=== PATIENT | male | born 1980 | race Two or more races ===

== ENCOUNTER 2024-10-14 14:03 | Outpatient (REF) | payer MEDICAID, SELFPAY ==
--- NOTE | ~2024-10-14 | US_ITS ---
CLINICAL HISTORY: right testicular pain, non palpable mass US Scrotum with Doppler Comparison: None Findings: Right testicle normal echotexture, 4.4 x 2.2 x 3.0 cm. Left testicle normal echotexture, 3.7 x 2.1 x 3.0 cm. Color Doppler and arterial/venous spectral tracings of both testicles within normal limits. A 4 mm right appendix testis is incidentally noted. This is of no current significance. Normal epididymides. There is a small right-sided hydrocele. There is no left-sided hydrocele. There are no varicoceles. IMPRESSION: Small right-sided hydrocele. This document has been electronically signed by: Cris Bustamante MD on 10/15/2024 15:20:36
--- OUTSIDE RECORDS SUMMARY | 2024-10-14 16:52 | XMS_ITS | Encounter Summary ---
Author Organization [employer] [facility] Address [address] [place] [address] 7 [place] [address] Care Team Providers Care Medical Staff Director Name Role Phone Unavailable Primary Care Provider Unavailabl e Reason for Visit * Reason Onset Date Comments Appointment Request 09/24/2024 Encounter Details Date Type Department Care Team (Late st Contact Info) Description 09/24/2024 Telephone [facility] [address] [place] [address] [phone] Hemalatha Paiz MA Appointment Request Social History Tobacco Use Types Packs/Day Years Used Date Smoking Tobacco: Former Cigarettes S tarted: 1999 Smokeless Tobacco: Never Sex and Gender Information Value Date Recorded Sex Assigned at Male 09/13/2024 10:17 AM EST Legal Sex Male 8:25 AM EST Gender Identity Male 09/12/2024 8:26 AM EST Sexual Orientation Straight 09/13/2024 9: 04 AM EST documented as of this encounter Miscellaneous Notes * Telephone Encounter - Hemalatha Paiz MA - 09/24/2024 2:57 PM EST Tc to pt to r/s appt from 11/13/24 as PCP will be in that afternoon. Appt has been scheduled for 11/13/24 at 2:00 pm, LVM with appt info. documented in this encounter Plan of Treatment Upcoming Encounters Date Type Department Care Team (Late st Contact Info) Description 11/13/2024 2:00 PM EDT Office Visit [facility] [address] [place] [phone] Alize Clarke MD [address] [place] [address] documented as of this encounter Visit Diagnoses Not on filedocumented in this encounter
--- OUTSIDE RECORDS SUMMARY | 2024-10-14 16:53 | XMS_ITS | Clinical Summary ---
Author Organization [employer] [facility] Address [address] [facility] [address] [place] [address] Care Team Providers Care Commutator V Ring Assembler Name Role Phone Unavailable Primary Care Provider Unavailabl e Allergies No known active allergies Medications phenylephrine-s hark liver oil-mineral oil-petrolatum (Preparation H) 0.25-3-14-71.9 % rectal ointment Insert into the rectum if needed in the morning and at bedtime for hemorrhoids for up to 10 days. 30 g 09/23/19 25 Active Problems Problem Noted Date Diagnosed Date Pain in testicle 09/13/2024 Assessment & Plan (09/13/2024 9:55 AM EST): Rule out scrotal lesions versus hernia, no evidence of epididymitis or other lesions. Order scrotal ultrasound and follow-up with PCP Hematochezia 09/13/2024 Assessment & Plan (09/13/2024 9:55 AM EST): Secondary to external hemorrhoids, not prolapsed or bleeding at this time. Use Preparation H rectal cream twice daily or after BMs. Avoid constipation, increase p.o. water intake and follow-up with new PCP, may need colonoscopy Encounters Date Type Department Care Team Description 09/24/2024 Telephone [facility] [address] [place] [phone] Hemalatha Paiz MA Appointment Request 09/13/2024 9:40 AM EST Office Visit [facility] [address] [place], [place] [phone] Alize Clarke MD Hematochezia (Primary Dx); Pain in testicle, unspecified laterality 09/13/2024 Telephone [facility] [address] [place] [phone] Alize Clarke MD Office Viist 09/12/2024 Telephone [facility] [address] [place] [phone] Tisha Obrien, [facility] Walk In Triage from Last 3 Months Social History Tobacco Use Types Packs/Day Years Used Date Smoking Tobacco: Former Cigarettes S tarted: 1999 Smokeless Tobacco: Never Sex and Gender Information Value Date Recorded Sex Assigned at Male 09/13/2024 10:17 AM EST Legal Sex Male 8:25 AM EST Gender Identity Male 09/12/2024 8:26 AM EST Sexual Orientation Straight 09/13/2024 9: 04 AM EST Last Filed Vital Signs Vital Sign Reading Time Taken Comments Blood Pressure 125/72 09/13/2024 9:14 AM EST Pulse 70 09/13/2024 9:14 AM EST Temperature 36 ??C (96.8 ??F) 09/13/2024 9:14 AM EST Respiratory Rate 18 09/13/2024 9:14 AM EST Oxygen Saturation 98% 09/13/2024 9:14 AM EST Inhaled Oxygen Concentration - - Weight 79.7 kg (175 lb 9.6 oz) 09/13/2024 9:14 A M EST Height - - Body Mass Index - - Plan of Treatment Upcoming Encounters Date Type Department Care Team (Late st Contact Info) Description 11/13/2024 2:00 PM EDT Office Visit [facility] [address] [place] [phone] Alize Clarke MD [address] [place] [phone] Health Maintenance Due Date Last Done Comments Depression Screening 1982 HIV Screening 1982 Lipid Panel 1982 SDOH Screening 1982 Alcohol/Substance Use Screening 1994 Family Planning (PISQ) 1997 Hepatitis C Screening 2000 DTaP/Tdap/Td Vaccines (1 - Tdap) 2001 Hepatitis B Vaccines (1 of 3 - 19+ 3-dose series) 2001 COVID-19 Vaccine (2023-2 5 season) 2024 Influenza Vaccine (#1) 2024 Tobacco Screening 09/13/2025 09/13/2024 Zoster Vaccines (1 of 2) 2032 RSV Patients and Pa tients Aged 60 years or older (1 - 1-dose 75+ series) 2057 HIB Vaccines Aged Out No longer eligi ble based on patient's age to complete this topic HPV Vaccines Aged Out No longer eligi ble based on patient's age to complete this topic Hepatitis A Vaccines Aged Out No long er eligible based on patient's age to complete this topic IPV Vaccines Aged Out No longer eligi ble based on patient's age to complete this topic Meningococcal Vaccine Aged Out No robi chelsea eligible based on patient's age to complete this topic Pneumococcal Vaccine: Pediat rics (0 to 5 Years) and At-Risk Patients (6 to 49) Years) Aged Out No longer elig ible based on patient's age to complete this topic RSV under 20 months Aged Out No longe r eligible based on patient's age to complete this topic Rotavirus Vaccines Aged Out No longer eligible based on patient's age to complete this topic Insurance [facility] C3
== END 2024-10-14 14:04 | disposition home or self-care (01) ==
LOC: HO.US 14:03
PROVIDERS: PCP Internal Medicine; Visit Provider Internal Medicine
DX: N50.819 Testicular pain, unspecified (principal)
CPT/HCPCS: 76870

== ENCOUNTER → 2024-10-14 14:06 | Outpatient (BNV) | payer MEDICAID, SELFPAY | PROVIDERS: PCP Internal Medicine; Visit Provider Radiology Diagnostic Radiology | DX: N43.3 Hydrocele, unspecified (principal) | CPT/HCPCS: 76870 ==